=== PATIENT | male | born 1970 | race Caucasian/White ===

== ENCOUNTER → 2017-10-24 08:22 | Outpatient (CLI) | payer MEDICARE, SELFPAY ==
--- NOTE | 2017-10-24 | DI.RAD.S_ITS ---
PROCEDURE: XR CHEST 2V INDICATIONS: DYSPNEA TECHNIQUE: 2 views of the chest were acquired. COMPARISON: None. FINDINGS: Surgical changes and devices: None. Lungs and pleura: No pleural effusions or pneumothorax. Lungs are clear. Mediastinum: Mediastinal contours are normal. Heart size is normal. Bones and chest wall: No suspicious bony abnormalities. Soft tissues appear unremarkable. IMPRESSION: No acute cardiopulmonary abnormality Dictated by: Harjinder Aguillon M.D. on 10/24/2017 at 9:43 Approved by: Harjinder Aguillon M.D. on 10/24/2017 at 9:43
--- NOTE | 2017-10-24 | DI.ECHO.S_ITS ---
[place] +---------+ [facility] +---------+ : : [address] : : : : [id number] : : : : Phone: [phone]+ Echocardiogram Report + + :Name: ASHLEE MAYES Study Date: 10/24/2017 Height: 66 in : :[facility] Weight: 244 lb : : Gender: Male BSA: 2.2 m2 : :: 1970 Age: 47 yrs BP: 110/80 mmHg: :Reason For Study: Dyspnea : : Performed By: Nasrin Robertson : :Referring: MARIE HOOPER : + + Interpretation Summary 1) Normal left ventricular size, wall motion, and systolic function (EF 55- 60%). 2) Normal right ventricular size and function. 3) The left coronary cusp appears smaller than the non-coronary cusp of the aortic valve. It doesn't appear like classic bicuspid valve but perhaps a variant. 4) Mild aortic regurgitation present. 5) The ascending aorta is at the upper limits of normal in size at 3.7cm. 6) No prior Echo available for comparison. Consider repeat Echo in 3 years for serial monitoring of the aortic valve or earlier if clinically indicated. Procedure: A two-dimensional transthoracic echocardiogram with color flow and Doppler was performed. The study quality was technically adequate. There is no prior echocardiogram noted for this patient. The patient was in normal sinus rhythm during the exam. Left Ventricle: The left ventricle is normal in size. Left ventricular wall thickness is at the upper limits of normal. The ejection fraction is estimated to be 55-60%. Assessment of diastolic parameters indicates normal left ventricular diastolic function and normal filling pressures. Right Ventricle: The right ventricle grossly appears normal in size with probable normal systolic function. Atria: The left atrial size is normal. Right atrial size is normal. The interatrial septum is intact with no evidence for an atrial septal defect. Mitral Valve: The mitral valve leaflets appear borderline thickened, but open well. There is trace mitral regurgitation. Aortic Valve: The aortic valve opens well. The left coronary cusp appears smaller than the non-coronary cusp. There is no aortic valve stenosis. There is mild aortic regurgitation. Tricuspid Valve: The tricuspid valve leaflets are thin and pliable. There is mild tricuspid regurgitation. The right ventricular systolic pressure is estimated at 27 mmHg assuming a right atrial pressure of 3 mm Hg. Pulmonic Valve: The pulmonic valve is not well seen, but is grossly normal. There is trace pulmonic regurgitation. Great Vessels: The aortic root is mildly dilated. The ascending aorta is at the upper limits of normal in size. The IVC is of normal diameter and collapses greater than 50% with a sniff. This suggests a low right atrial pressure of 3 mm Hg. Pericardium/ Pleura There is no pericardial effusion. There is no pleural effusion. MMode/2D Measurements & Calculations LVIDd: 4.7 cm Ao root diam: 3.9 cm LVIDs: 3.2 cm Aortic Jxn: 3.3 cm FS: 32.6 % asc Aorta Diam: 3.7 cm EPSS: 0.57 cm Ao Arch Diam (Prox Trans): 2.7 cm IVSd: 1.2 cm LVPWd: 1.0 cm LV clemens. diameter/BSA (cm/m^2): 2.2 LV sys. diameter/BSA (cm/m^2): 1.5 LA dimension: 3.9 cm RA long axis: 4.9 cm LA A2 area: 20.2 cm2 RA area: 14.1 cm2 LA A4 area: 24.1 cm2 RA vol: 34.5 ml LA length (vol): 5.8 cm RA : 15.9 ml/m2 LA vol: 70.5 ml IVC diam: 1.8 cm LA vol index: 32.4 ml/m2 RVDd major: 6.4 cm RVD1 (basal): 4.0 cm RVD2 (mid): 3.8 cm MATT (plan): 3.7 cm2 TAPSE: 2.0 cm Doppler Measurements & Calculations Ao V2 max: 203.0 cm/sec MV E max zaid: 93.1 cm/sec Ao V2 mean: 140.4 cm/sec MV A max zaid: 60.0 cm/sec Ao max P.5 mmHg MV E/A: 1.6 Ao mean P.0 mmHg Med Peak E' Zaid: 7.9 cm/sec Ao V2 VTI: 45.9 cm E/E' med: 11.8 Lat Peak E' Zaid: 9.5 cm/sec E/E' lat: 9.8 E/e' average: 10.8 MV dec time: 0.23 sec MV P1/2t: 66.5 msec TR max zaid: 243.3 cm/sec MV P1/2t max zaid: 94.0 cm/sec TR max P.7 mmHg MVA(P1/2t): 3.3 cm2 PA V2 max: 88.2 cm/sec PA V2 mean: 56.2 cm/sec PA mean P.5 mmHg PA Accel Time: 0.14 sec Reading Physician:02:34 PM
[2017-10-24 09:51] LABS: Add Manual Diff / Slide Review NO; Basophils Percent Auto 0.9 % (0-2); Eosinophils Percent Auto 2.4 % (2-4); Hematocrit 40.2 % (41-53); Hemoglobin 13.6 g/dL (13.5-17.5); Mean Corpuscular HGB Conc 33.7 % (30-36); Mean Corpuscular Hemoglobin 27.7 PG (26-34); Mean Corpuscular Volume 82.2 fL (80-100); Monocytes Percent Auto 6.2 % (3-14); Neutrophils Absolute Auto 4400 /uL (3000-5900); Neutrophils Percent Auto 61.5 % (50-75); Platelet Count 198 X10^3/uL (150-400); Red Cell Distribution Width 13.9 % (11.6-14.8); White Blood Cell Count 7.2 X10^3/uL (4.5-11.0)
[2017-10-24 10:03] LABS: B Type Natriuretic Peptide 47.5 (<100)
== END ==
PROVIDERS: Family Provider Internal Medicine; PCP Internal Medicine; Visit Provider Internal Medicine
DX: R06.00 Dyspnea, unspecified (principal)
CPT/HCPCS: 36415; 71046; 83880; 85025; 93306

== ENCOUNTER → 2017-12-08 10:59 | Outpatient (CLI) | payer MEDICARE, SELFPAY ==
[2017-12-08 12:20] LABS: Lithium 0.4 mmol/L (0.6-1.2)
== END ==
PROVIDERS: Family Provider Internal Medicine; PCP Internal Medicine; Visit Provider Psychiatry & Neurology Psychiatry
DX: Z51.81 Encounter for therapeutic drug level monitoring (principal)
CPT/HCPCS: 36415; 80178

== ENCOUNTER → 2018-01-14 06:58 | Outpatient (CLI) | payer MEDICARE, SELFPAY ==
[2018-01-14 08:00] LABS: Lithium 0.7 mmol/L (0.6-1.2)
== END ==
PROVIDERS: Psychiatry & Neurology Psychiatry; Family Provider Internal Medicine; PCP Internal Medicine; Visit Provider Internal Medicine
DX: E11.9 Type 2 diabetes mellitus without complications (principal); E78.5 Hyperlipidemia, unspecified; Z51.81 Encounter for therapeutic drug level monitoring
CPT/HCPCS: 36415; 80178